=== PATIENT | female | born 1980 | race Caucasian/White ===

== ENCOUNTER 2021-07-28 15:42 | Inpatient (IN) | payer MEDICARE, MEDICAID ==
[2021-07-28 16:45] LABS: #Eosinphils 0.1 10x3/uL (0.0-0.5); #Monocytes 0.9 10x3/uL (0.0-1.1); #Neutrophils 8.8 10x3/uL (1.5-8.4); %Basophils 0.3 % (0.0-2.0); %Eosinophils 1.1 % (0.0-6.0); %Lymphocytes 16.4 % (18.0-47.0); %Monocytes 7.3 % (0.0-10.0); %Neutrophils 74.6 % (40.0-75.0); Hemoglobin 10.4 g/dL (12.0-15.5); Mean Corpuscular HGB CONC 32.2 g/dL (32.0-36.0); Mean Corpuscular Hemoglobin 26.5 pg (27.0-33.0); Mean Corpuscular Volume 82.4 fl (81.6-98.3); Mean Platelet Volume 11.2 fl (7.4-10.4); Platelet Count 297 10x3/uL (150-450); RBC Distribution Width 15.9 % (11.5-14.5); Red Blood Cell (RBC) Count 3.92 10x6/uL (3.90-5.03); White Blood Cell (WBC) Count 11.9 10x3/uL (3.5-10.5)
[2021-07-28] MEDS ORDERED: Cefepime 2 GM VIAL ONE (16:51)
[2021-07-28 16:56] LABS: ALT (SGPT) 20 U/L (8-55); AST (SGOT) 16 U/L (5-34); Albumin 4.2 g/dL (3.5-5.0); Alkaline Phosphatase 75 U/L (40-110); Anion Gap 16 mmol/L (10-20); BUN (Urea Nitrogen) 8 mg/dL (7.0-18.7); Bilirubin, Total 0.6 mg/dL (0.2-1.2); Calc. Creatinine Clearance 157 mL/min (70-130); Calcium 9.1 mg/dL (7.8-10.44); Carbon Dioxide 17 mmol/L (22-29); Chloride 105 mmol/L (98-107); Globulin 3.5 g/dL (2.4-3.5); Glucose 76 mg/dL (70-105); Potassium 3.5 mmol/L (3.5-5.1); Protein, Total 7.7 g/dL (6.0-8.3); Sodium 134 mmol/L (136-145)
[2021-07-28] MEDS ORDERED: Piperacillin/Tazobactam 3.375 GM VIAL ONE (17:09)
[2021-07-28] MEDS ORDERED: Morphine 4 MG/ML VIAL ONE (17:30)
[2021-07-28] MEDS ORDERED: Ondansetron PF 4 MG/2 ML Vial ONE ×2 (17:30→20:03)
[2021-07-28] MEDS ORDERED: Vancomycin HCl 1.25 GM in Sodium Chloride 0.9% 250 ML 250 ML IVPB SCH (17:30)
[2021-07-28] MEDS ORDERED: Lidocaine 1% (PF) 30 ML VIAL ONE (18:05)
[2021-07-28] MEDS ORDERED: Bupivacaine 0.25% HCL 30 ML VIAL ONE (18:05)
[2021-07-28] MEDS ORDERED: PROPOFOL 20 ML ONE (18:48)
[2021-07-28] MEDS ORDERED: Lidocaine 2% PF 5 ML VIAL ONE (18:48)
[2021-07-28 19:08] LABS: SARS-CoV-2 NAA Rapid Test Not Detected (NotDetected)
[2021-07-28] MEDS ORDERED: Midazolam HCl 2 mg/2 ml Vial ONE (19:35)
[2021-07-28] MEDS ORDERED: Dexamethasone 4 mg/ml Vial ONE (20:03)
[2021-07-28] MEDS ORDERED: Ketorolac Tromethamine 30 MG/ML VIAL ONE (20:03)
[2021-07-28 22:58] VITALS: BMI 26.5
[2021-07-28] MEDS ORDERED: Zolpidem Tartrate 5 MG TAB PO SCH (23:15)
[2021-07-28] MEDS ORDERED: Pregabalin 75 MG CAP PO SCH (23:15)
[2021-07-28] MEDS ORDERED: Piperacillin/Tazobactam 3.375 GM in Sodium Chloride 0.9% 100 ML IVPB SCH (23:15)
[2021-07-28] MEDS ORDERED: Amitriptyline HCl 10 MG TAB PO SCH (23:15)
[2021-07-28] MEDS: Ketorolac Tromethamine 30 MG/ML VIAL IVP SCH (23:33)
[2021-07-28] MEDS ORDERED: Morphine 4 MG/ML VIAL SLOW IVP PRN (23:34)
[2021-07-28] MEDS ORDERED: Lactated Ringer's 1,000 ML IV SCH (23:45)
[2021-07-29] MEDS: Piperacillin/Tazobactam 3.375 GM in Sodium Chloride 0.9% 100 ML IVPB SCH ×3 (00:01→16:05)
[2021-07-29] MEDS ORDERED: Lactated Ringer's 1,000 ML IV SCH (04:00)
[2021-07-29] MEDS: Vancomycin HCl 750 MG in Sodium Chloride 0.9% 250 ML 250 ML IVPB SCH ×3 (04:04→20:51)
[2021-07-29 04:40] LABS: CRP (Inflammatory) 23.12 mg/dL (= or < 0.5)
[2021-07-29 05:17] LABS: Ferritin 36.61 ng/mL (10-291)
[2021-07-29] MEDS: Ketorolac Tromethamine 30 MG/ML VIAL IVP SCH (06:40)
[2021-07-29] MEDS: Senokot S 8.6-50 MG TAB PO SCH (08:39)
[2021-07-29] MEDS: Bupropion 150 MG XL TAB PO SCH (08:40)
[2021-07-29] MEDS: Trospium 20 MG TAB PO SCH ×2 (08:40→20:44)
[2021-07-29] MEDS: DULoxetine 30 MG CAP PO SCH (08:40)
[2021-07-29] MEDS: Aspirin Chewable 81 MG TAB PO SCH (08:41)
[2021-07-29] MEDS: Acetaminophen 325 MG TAB PO PRN ×2 (08:44→08:55)
[2021-07-29] MEDS ORDERED: FONDAPARINUX SODIUM 7.5 MG/0.6 ML SC SCH (09:00)
[2021-07-29] MEDS ORDERED: Famotidine 20 MG TAB PO SCH (09:00)
[2021-07-29] MEDS ORDERED: Plecanatide [Trulance] 3 MG Tablet PO SCH (09:00)
[2021-07-29] MEDS: HYDROcodone/Acetaminophen 10/325 mg Tablet PO PRN ×3 (12:44→22:57)
[2021-07-29] MEDS: Morphine 4 MG/ML VIAL SLOW IVP PRN (15:59)
[2021-07-29 19:24] LABS: Vancomycin, Trough 12.1 ug/mL
[2021-07-29] MEDS ORDERED: Zolpidem Tartrate 5 MG TAB PO SCH (21:00)
[2021-07-29] MEDS ORDERED: Pregabalin 50 MG CAP PO SCH (21:00)
[2021-07-29] MEDS ORDERED: Baclofen 10 MG TAB PO SCH (21:00)
[2021-07-29] MEDS ORDERED: Amitriptyline HCl 10 MG TAB PO SCH (21:00)
[2021-07-30] MEDS ORDERED: Estrogens, Conjugated 30 GM TUBE VAG SCH ×2 (00:15→21:00)
[2021-07-30] MEDS: Piperacillin/Tazobactam 3.375 GM in Sodium Chloride 0.9% 100 ML IVPB SCH ×3 (00:18→15:51)
[2021-07-30] MEDS: Morphine 4 MG/ML VIAL SLOW IVP PRN ×2 (02:05→10:41)
[2021-07-30] MEDS: diphenhydrAMINE 25 MG CAP PO PRN ×2 (04:25→10:40)
[2021-07-30] MEDS: Vancomycin HCl 750 MG in Sodium Chloride 0.9% 250 ML 250 ML IVPB SCH (04:27)
[2021-07-30 06:42] LABS: BUN (Urea Nitrogen) 9 mg/dL (7.0-18.7); Calc. Creatinine Clearance 154 mL/min (70-130)
[2021-07-30] MEDS: Senokot S 8.6-50 MG TAB PO SCH (08:22)
[2021-07-30] MEDS: Aspirin Chewable 81 MG TAB PO SCH (08:22)
[2021-07-30] MEDS: Bupropion 150 MG XL TAB PO SCH (08:23)
[2021-07-30] MEDS: Trospium 20 MG TAB PO SCH (08:23)
[2021-07-30] MEDS: DULoxetine 30 MG CAP PO SCH (08:23)
[2021-07-30] MEDS: HYDROcodone/Acetaminophen 10/325 mg Tablet PO PRN ×2 (08:24→16:16)
[2021-07-30] MEDS ORDERED: Fondaparinux Sodium 2.5 MG/0.5 ML SYRINGE SC SCH (09:00)
[2021-07-30] MEDS ORDERED: NORETHINDRONE ACETATE 5 MG PO SCH (09:00)
[2021-07-30 11:13] LABS: Vancomycin, Trough 12.8 ug/mL
[2021-07-30 12:49] VITALS: BP 94/52; TEMP 96.7
[2021-07-30] MEDS ORDERED: Vancomycin 1 GM in Premix Bag 1 BAG IVPB SCH (14:00)
[2021-07-30] MEDS ORDERED: Vancomycin HCl 1 GM in Sodium Chloride 0.9% 250 ML 250 ML IVPB SCH (14:00)
[2021-07-31 11:14] LABS: Fungus Stain Final report (.)
== END 2021-07-30 16:41 | disposition home or self-care (01) | DRG 513 ==
LOC: CSHERS 15:42 → CSHTELE 21:13 → OBSVTOIN 07-30 09:36
PROVIDERS: ADMIT Emergency Medicine; ATTEND Hospitalist
PROC: 0X6W0Z3 Detachment at Left Little Finger, Low, Open Approach (ICD-10-PCS; principal; 2021-07-28)
DX: M86.142 Other acute osteomyelitis, left hand (principal); R53.2 Functional quadriplegia; Z20.822 Contact with and (suspected) exposure to COVID-19; G89.4 Chronic pain syndrome; F32.A Depression, unspecified; K59.01 Slow transit constipation; T14.8XXS Other injury of unspecified body region, sequela; Z99.3 Dependence on wheelchair; Z86.718 Personal history of other venous thrombosis and embolism; D64.9 Anemia, unspecified; N31.9 Neuromuscular dysfunction of bladder, unspecified; Z79.82 Long term (current) use of aspirin; Z79.899 Other long term (current) drug therapy
CPT/HCPCS: 36415; 80053; 80202; 82565; 82607; 82728; 82746; 83540; 83550; 83605; 84520; 85025; 86140; 87040; 87070; 87077; 87102; 87186; 87205; 87206; 88305; 88311; 96365; 96367; 96375; 96376; G0378; J0692; J1100; J1652; J1885; J2001; J2250; J2270; J2405; J2543; J2704; J3370; J3490; J7050; J7120; S0020; U0002

== ENCOUNTER 2021-09-20 12:53 | Emergency (ER) | payer MEDICARE, MEDICAID ==
[2021-09-20] MEDS ORDERED: HYDROcodone/Acetaminophen 10/325 mg Tablet ONE (16:52)
[2021-09-20 17:00] LABS: #Basophils 0.1 10x3/uL (0.0-0.2); #Eosinphils 0.2 10x3/uL (0.0-0.5); #Monocytes 0.6 10x3/uL (0.0-1.1); #Neutrophils 4.2 10x3/uL (1.5-8.4); %Basophils 0.8 % (0.0-2.0); %Eosinophils 2.7 % (0.0-6.0); %Lymphocytes 33.1 % (18.0-47.0); %Monocytes 8.1 % (0.0-10.0); %Neutrophils 54.4 % (40.0-75.0); Hemoglobin 10.2 g/dL (12.0-15.5); Mean Corpuscular HGB CONC 31.4 g/dL (32.0-36.0); Mean Corpuscular Volume 82.9 fl (81.6-98.3); Mean Platelet Volume 10.7 fl (7.4-10.4); Platelet Count 297 10x3/uL (150-450); RBC Distribution Width 17.1 % (11.5-14.5); Red Blood Cell (RBC) Count 3.92 10x6/uL (3.90-5.03); White Blood Cell (WBC) Count 7.8 10x3/uL (3.5-10.5)
[2021-09-20 17:15] LABS: INR-International Normal Ratio 0.9; PTT 26.3 sec (22.0-33.0); Prothrombin Time 10.3 sec (9.5-12.1)
[2021-09-20 17:26] LABS: ALT (SGPT) 25 U/L (8-55); AST (SGOT) 17 U/L (5-34); Albumin 3.7 g/dL (3.5-5.0); Alkaline Phosphatase 99 U/L (40-110); Anion Gap 13 mmol/L (10-20); BUN (Urea Nitrogen) 12 mg/dL (7.0-18.7); Bilirubin, Total 0.2 mg/dL (0.2-1.2); Calc. Creatinine Clearance 0 mL/min (70-130); Calcium 9.1 mg/dL (7.8-10.44); Carbon Dioxide 24 mmol/L (22-29); Chloride 108 mmol/L (98-107); Globulin 3.2 g/dL (2.4-3.5); Glucose 87 mg/dL (70-105); Potassium 4.3 mmol/L (3.5-5.1); Protein, Total 6.9 g/dL (6.0-8.3); Sodium 141 mmol/L (136-145)
== END 2021-09-20 19:15 | disposition left against medical advice (07) ==
LOC: CSHERS 12:53
DX: M79.605 Pain in left leg (principal)
CPT/HCPCS: 36415; 80053; 85025; 85610; 85730

== ENCOUNTER 2022-09-30 12:08 | Emergency (ER) | payer MEDICARE, OTHER ==
[2022-09-30] MEDS ORDERED: Morphine 4 MG/ML VIAL ONE (14:00)
[2022-09-30] MEDS ORDERED: Aspirin Chewable 81 MG TAB ONE (14:00)
[2022-09-30] MEDS ORDERED: Rivaroxaban 15 MG TAB PO SCH (14:15)
[2022-09-30 14:26] LABS: #Basophils 0.1 10x3/uL (0.0-0.2); #Eosinphils 0.2 10x3/uL (0.0-0.5); #Monocytes 0.5 10x3/uL (0.0-1.1); #Neutrophils 5.6 10x3/uL (1.5-8.4); %Basophils 0.6 % (0.0-2.0); %Lymphocytes 24.1 % (18.0-47.0); %Monocytes 5.9 % (0.0-10.0); %Neutrophils 66.2 % (40.0-75.0); Hemoglobin 10.9 g/dL (12.0-15.5); Mean Corpuscular HGB CONC 33.9 g/dL (32.0-36.0); Mean Corpuscular Hemoglobin 28.2 pg (27.0-33.0); Mean Corpuscular Volume 83.2 fl (81.6-98.3); Mean Platelet Volume 10.7 fl (7.4-10.4); Platelet Count 351 10x3/uL (150-450); RBC Distribution Width 15.4 % (11.5-14.5); Red Blood Cell (RBC) Count 3.87 10x6/uL (3.90-5.03); White Blood Cell (WBC) Count 8.5 10x3/uL (3.5-10.5)
[2022-09-30 14:33] LABS: BHCG - Serum Negative (NEGATIVE); Pregs Control Background? CLEAR/WHITE (CLR/WHITE); Pregs Control Bar Appear? YES (CONTROL BAR)
[2022-09-30 14:37] LABS: Prothrombin Time 10.6 sec (9.5-12.1)
[2022-09-30 14:43] LABS: ALT (SGPT) 51 U/L (8-55); AST (SGOT) 35 U/L (5-34); Albumin 3.9 g/dL (3.5-5.0); Alkaline Phosphatase 103 U/L (40-110); Anion Gap 14 mmol/L (10-20); BUN (Urea Nitrogen) 7 mg/dL (7.0-18.7); Bilirubin, Total 0.3 mg/dL (0.2-1.2); CK (CPK) 69 U/L (29-168); Calc. Creatinine Clearance 0 mL/min (70-130); Calcium 9.2 mg/dL (7.8-10.44); Carbon Dioxide 23 mmol/L (22-29); Chloride 107 mmol/L (98-107); Estimated GFR 123; Globulin 2.7 g/dL (2.4-3.5); Glucose 116 mg/dL (70-105); Lipase 18 U/L (8-78); Potassium 3.8 mmol/L (3.5-5.1); Protein, Total 6.6 g/dL (6.0-8.3); Sodium 140 mmol/L (136-145)
[2022-09-30] MEDS ORDERED: Iopamidol 370 76% 100 ML VIAL ONE (15:20)
== END 2022-09-30 15:38 | disposition home or self-care (01) ==
LOC: CSHERS 12:08
DX: I82.401 Acute embolism and thrombosis of unspecified deep veins of right lower extremity (principal); F17.210 Nicotine dependence, cigarettes, uncomplicated
CPT/HCPCS: 71275; 80053; 82550; 83690; 84484; 84703; 85025; 85610; 85730; 93005; 93970; 96374; J2270; Q9967

== ENCOUNTER 2022-10-22 13:06 | Outpatient (CLI) | payer MEDICARE, OTHER | END 2022-10-22 13:07 | disposition home or self-care (01) | LOC: CSHWCC 13:06 | PROVIDERS: ATTEND Nurse Practitioner Family | DX: L89.213 Pressure ulcer of right hip, stage 3 (principal); L89.313 Pressure ulcer of right buttock, stage 3; I87.311 Chronic venous hypertension (idiopathic) with ulcer of right lower extremity; L97.312 Non-pressure chronic ulcer of right ankle with fat layer exposed | CPT/HCPCS: 97139; G0463; 99204 ==

== ENCOUNTER 2022-11-24 10:46 | Outpatient (CLI) | payer MEDICARE, OTHER | END 2022-11-24 10:47 | disposition home or self-care (01) | LOC: CSHWCC 10:46 | PROVIDERS: ATTEND Nurse Practitioner Family | DX: I87.311 Chronic venous hypertension (idiopathic) with ulcer of right lower extremity (principal); L97.312 Non-pressure chronic ulcer of right ankle with fat layer exposed; R60.0 Localized edema | CPT/HCPCS: 97139; G0463; 99213 ==

== ENCOUNTER 2023-01-12 13:02 | Emergency (ER) | payer OTHER ==
[2023-01-12] MEDS ORDERED: Ondansetron PF 4 MG/2 ML Vial ONE (13:54)
[2023-01-12 13:55] LABS: Bilirubin Neg (Negative); Blood, Urine 150 (Negative); Glucose, Urine (Dipstick) Normal (Negative); Ketone, Urine Negative (Negative); Leukocyte 500 (Negative); Nitrite Positive (Negative); Protein, Urine (Dipstick) Negative (Neg-Trace); Urobilinogen Normal mg/dL (Less than 2)
[2023-01-12 13:56] LABS: Clarity Slightly Cloudy (Clear)
[2023-01-12 14:04] LABS: #Basophils 0.1 10x3/uL (0.0-0.2); #Eosinphils 0.1 10x3/uL (0.0-0.5); #Monocytes 0.4 10x3/uL (0.0-1.1); #Neutrophils 3.2 10x3/uL (1.5-8.4); %Basophils 0.9 % (0.0-2.0); %Eosinophils 1.6 % (0.0-6.0); %Lymphocytes 33.8 % (18.0-47.0); %Monocytes 6.8 % (0.0-10.0); %Neutrophils 56.7 % (40.0-75.0); Hemoglobin 12.8 g/dL (12.0-15.5); Mean Corpuscular HGB CONC 32.5 g/dL (32.0-36.0); Mean Corpuscular Hemoglobin 26.9 pg (27.0-33.0); Mean Corpuscular Volume 82.9 fl (81.6-98.3); Mean Platelet Volume 10.5 fl (7.4-10.4); Platelet Count 259 10x3/uL (150-450); RBC Distribution Width 17.6 % (11.5-14.5); Red Blood Cell (RBC) Count 4.75 10x6/uL (3.90-5.03); White Blood Cell (WBC) Count 5.6 10x3/uL (3.5-10.5)
[2023-01-12 14:29] LABS: WBC/HPF 21-50 HPF (0-3)
[2023-01-12 14:29] LABS: ALT (SGPT) 36 U/L (8-55); AST (SGOT) 20 U/L (5-34); Albumin 4.3 g/dL (3.5-5.0); Alkaline Phosphatase 102 U/L (40-110); Anion Gap 15 mmol/L (10-20); BUN (Urea Nitrogen) 7 mg/dL (7.0-18.7); Bilirubin, Total 0.5 mg/dL (0.2-1.2); CK (CPK) 69 U/L (29-168); Calc. Creatinine Clearance 0 mL/min (70-130); Calcium 9.4 mg/dL (7.8-10.44); Carbon Dioxide 22 mmol/L (22-29); Chloride 108 mmol/L (98-107); Estimated GFR 118; Globulin 2.7 g/dL (2.4-3.5); Glucose 86 mg/dL (70-105); Potassium 3.6 mmol/L (3.5-5.1); Sodium 141 mmol/L (136-145)
[2023-01-12 14:30] LABS: Bacteria/HPF 4+ HPF (None Seen)
[2023-01-12 14:40] LABS: SARS-CoV-2 NAA Rapid Test Not Detected (NotDetected)
== END 2023-01-12 15:56 | disposition home or self-care (01) ==
LOC: CSHERS 13:02
DX: N39.0 Urinary tract infection, site not specified (principal); F17.210 Nicotine dependence, cigarettes, uncomplicated; Z20.822 Contact with and (suspected) exposure to COVID-19
CPT/HCPCS: 36415; 71045; 80053; 81003; 81015; 82550; 84484; 85025; 87077; 87086; 87186; 96374; J2405